=== PATIENT | male | born 1990 | race Caucasian/White ===

== ENCOUNTER 2018-11-30 19:25 | Emergency (ER) | payer SELFPAY ==
[2018-11-30] MEDS ORDERED: Ibuprofen TAB* 600 MG PO ONE (21:14)
--- NOTE | 2018-11-30 21:14 | ED ---
Lower Extremity - HPI Summary HPI Summary: Patient complains of right knee pain and swelling and anterior distal thigh pain after hitting right knee on diving board today. Denies any other pain injury or symptoms. Patient states he has difficulty ambulating as he has difficulty extending right lower extremity distal to the knee. - History of Current Complaint Chief Complaint: EDExtremityLower Stated Complaint: RIGHT LEG INJURY PER PT Time Seen by Provider: 11/30/18 20:03 Hx Obtained From: Patient Mechanism Of Injury: Direct Blow Onset of Pain: Immediate Onset/Duration: Hours Severity Initially: Mild Severity Currently: Mild Pain Intensity: 3 Pain Scale Used: 0-10 Numeric Timing: Constant Location: Is Discrete @ Character Of Pain: Aching, Throbbing Associated Signs And Symptoms: Positive: Swelling, Knee Pain Aggravating Factor(s): Movement Alleviating Factor(s): Rest Able to Bear Weight: Yes - Allergies/Home Medications Allergies/Adverse Reactions: Allergies Allergy/AdvReac Type Severity Reaction Status Date / Time No Known Allergies Allergy Verified 11/30/18 19:27 PMH/Surg Hx/FS Hx/Imm Hx Endocrine/Hematology History: Denies: Hx Anticoagulant Therapy Cardiovascular History: Denies: Hx Pacemaker/ICD History: Denies: Hx Dialysis Sensory History: Denies: Hx Legally Blind Opthamlomology History: Denies: Hx Eye Prosthesis EENT History: Denies: Hx Deafness Neurological History: Denies: Hx Developmental Delay Psychiatric History: Denies: Hx Autism Infectious Disease History: No Infectious Disease History: Denies: Traveled Outside the [place] in Last 30 Days - Family History Known Family History: Positive: Non-Contributory - Social History Alcohol Use: Occasionally Substance Use Type: Reports: None Smoking Status (MU): Current Some Day Smoker Review of Systems Constitutional: Negative Eyes: Negative ENT: Negative Cardiovascular: Negative Respiratory: Negative Gastrointestinal: Negative Genitourinary: Negative Musculoskeletal: Other Skin: Other Neurological: Negative Psychological: Normal All Other Systems Reviewed And Are Negative: Yes Physical Exam - Summary Physical Exam Summary: Swelling over the right patella with possible deformity to distal quadriceps. Patient cannot extend right lower extremity distal to the knee. PMS intact distally. Calf soft nontender. No ecchymosis, erythema, extra warmth noted to right knee. Full range of motion of right knee. Triage Information Reviewed: Yes Vital Signs On Initial Exam: Initial Vitals Temp Pulse Resp BP Pulse Ox 98.9 F 75 18 121/94 98 11/30/18 19:27 11/30/18 19:27 11/30/18 19:27 11/30/18 19:27 11/30/18 19:27 Vital Signs Reviewed: Yes Appearance: Positive: Well-Appearing Skin: Positive: Warm Head/Face: Positive: Normal Head/Face Inspection Eyes: Positive: Normal Neck: Positive: Supple Respiratory/Lung Sounds: Positive: Clear to Auscultation Cardiovascular: Positive: Normal Abdomen Description: Positive: Nontender Musculoskeletal: Positive: Normal Neurological: Positive: Normal Psychiatric: Positive: Normal AVPU Assessment: Alert - Komal Coma Scale Best Eye Response: 4 - Spontaneous Best Motor Response: 6 - Obeys Commands Best Verbal Response: 5 - Oriented Coma Scale Total: 15 Diagnostics - Vital Signs Vital Signs Temp Pulse Resp BP Pulse Ox 11/30/18 19:27 98.9 F 75 18 121/94 98 - Laboratory Lab Statement: Any lab studies that have been ordered have been reviewed, and results considered in the medical decision making process. Lower Extremity Course/Dx - Course Course Of Treatment: Patient complains of right knee pain and swelling and anterior distal thigh pain after hitting right knee on diving board today. Denies any other pain injury or symptoms. Patient states he has difficulty ambulating as he has difficulty extending right lower extremity distal to the knee. Vital signs within normal limits. X-ray right knee positive for avulsion of superior pole of patella with possible quadriceps tendon rupture. Patient cannot extend right lower extremity distal to the knee. Patient placed in the immobilizer, provided with crutches. Follow-up with orthopedics. Patient is from [place] and is returning tomorrow and will follow-up with orthopedics in his hometown. Patient understands and approves of plan. - Diagnoses Provider Diagnoses: Right patella fracture, Injury of quadriceps tendon Discharge - Sign-Out/Discharge Documenting (check all that apply): Patient Departure Patient Received Moderate/Deep Sedation with Procedure: No - Discharge Plan Condition: Stable Disposition: HOME Patient Education Materials: Knee Immobilizer (ED), Tendon Repair (DC) Referrals: No Primary Care Phys,NOPCP [Primary Care Provider] - Additional Instructions: Use knee immobilizer and crutches until you can follow up with orthopedics at home in [place]. Please follow-up with orthopedics as soon as possible. Ibuprofen for pain. - Billing Disposition and Condition Condition: STABLE Disposition: Home
[2018-11-30 21:38] VITALS: BP 153/91
== END 2018-11-30 21:37 | disposition home or self-care (01) ==
LOC: ED 19:25
DX: S82.001A Unspecified fracture of right patella, initial encounter for closed fracture (principal); S76.109A Unspecified injury of unspecified quadriceps muscle, fascia and tendon, initial encounter; M25.561 Pain in right knee; R60.0 Localized edema; Z72.0 Tobacco use; W21.4XXA Striking against diving board, initial encounter; Y92.9 Unspecified place or not applicable
CPT/HCPCS: 99282; A9270-GY